=== PATIENT | male | born 1985 | race Caucasian/White ===

== ENCOUNTER 2019-05-22 17:30 | Emergency (ER) | payer MEDICAID, OTHER ==
[~2019-05-22] VITALS: Ht 175.3 cm; Wt 73.7 kg
[2019-05-22 17:35] VITALS: BP 125/77
--- NOTE | 2019-05-22 17:44 | NUR ---
ELECTRIC REFRIGERATOR SERVICER: PT TO ROOM FROM LOBBY VIA W/C
== END 2019-05-22 18:34 ==
LOC: ED 18:27
DX: T23.221A Burn of second degree of single right finger (nail) except thumb, initial encounter (principal); T31.0 Burns involving less than 10% of body surface; F17.210 Nicotine dependence, cigarettes, uncomplicated; X08.8XXA Exposure to other specified smoke, fire and flames, initial encounter; Y93.89 Activity, other specified; Y92.89 Other specified places as the place of occurrence of the external cause; Y99.8 Other external cause status
CPT/HCPCS: 99281

== ENCOUNTER 2019-08-24 17:27 | Emergency (ER) | payer MEDICAID ==
[~2019-08-24] VITALS: Ht 177.8 cm; Wt 67.1 kg
[2019-08-24 17:33] VITALS: BP 95/65
--- NOTE | 2019-08-24 17:41 | NUR ---
DIRECTOR OF COMPENSATION: CALLED FOR RADIOLOGY FILMS, NO ANSWER. PER SECURITY PT SEEN WALKING OUT OF DEPARTMENT.
== END 2019-08-24 19:22 | disposition left against medical advice (07) ==
LOC: ED 17:30
DX: M79.601 Pain in right arm (principal); Y08.89XA Assault by other specified means, initial encounter; Y93.89 Activity, other specified; Y92.89 Other specified places as the place of occurrence of the external cause; Y99.8 Other external cause status
CPT/HCPCS: 99281

== ENCOUNTER 2020-09-23 17:17 | Emergency (ER) | payer MEDICAID ==
--- NOTE | 2020-09-23 18:44 | NUR ---
MORTICIAN SUPPLIES SALES REPRESENTATIVE: CALLED PT FOR THIRD ATTEMPT FOR TRIAGE, NOT IN LOBBY.
--- NOTE | 2020-09-23 18:44 | NUR ---
Giancarlo webber in [facility] - 09/23/20 at 1845 by ARIN MANAGER ACTION: [id number] [phone]
== END 2020-09-23 18:54 | disposition left against medical advice (07) ==
LOC: ED 17:45
DX: R07.9 Chest pain, unspecified (principal); Z53.21 Procedure and treatment not carried out due to patient leaving prior to being seen by health care provider